=== PATIENT | female | born 1950 | race Caucasian/White ===

== ENCOUNTER → 2017-03-10 | Outpatient (CLI) | payer OTHER | LOC: FIMAGING 13:22 | DX: Z12.31 Encounter for screening mammogram for malignant neoplasm of breast (principal) | CPT/HCPCS: G0202 ==

== ENCOUNTER 2017-12-05 17:05 | Observation (INO) | payer OTHER ==
--- NOTE | 2017-12-05 17:19 | CPEKG ---
Heart Rate: 62 RR Interval: 968 P-R Interval: 168 QRSD Interval: 100 QT Interval: 436 QTC Interval: 443 P Alto: 43 QRS Alto: 49 T Wave Alto: 119 EKG Severity - ABNORMAL ECG - EKG Impression: SINUS RHYTHM EKG Impression: NONSPECIFIC T ABNORMALITIES, LATERAL LEADS Electronically Signed By: Jase Okeefe 08-Dec-2017 06:10:55
[2017-12-05] MEDS ORDERED: ASPIRIN 81 MG CHEWABLE TAB PO ONE (17:20)
[2017-12-05 17:33] LABS: PLATELET COUNT 261 10^3/uL (150-400)
--- NOTE | 2017-12-05 18:09 | EDPHY ---
H & P Stated Complaint: chest pain and dyspnea earlier today Time Seen by Provider: 12/05/17 17:20 HPI/ROS: CHIEF COMPLAINT: CHEST PAIN HISTORY BY PATIENT HISTORY OF PRESENT ILLNESS: 67-YEAR-OLD WOMAN WITH A HISTORY OF HYPERTENSION, diabetes and high cholesterol presents complaining of an episode of pressure- like substernal chest pain which began while she was walking quickly trying to get to an event. Patient states that she began walking quickly and then developed some shortness of breath and then the pressure-like chest pain. She had to sit down on a bench and after 10-15 minutes the symptoms subsided. Patient has had a history of shortness of breath with exertion but never chest pain. She has some chronic mild leg swelling. She denies any leg pain. She takes a baby aspirin a day but her last 1 was last night. Her blood pressure has generally been well controlled and she takes her lisinopril regularly. REVIEW OF SYSTEMS: IN HPI, AND ALL OTHER SYSTEMS REVIEWED AND ARE NEGATIVE Source: Patient - Personal History Current Tetanus Diphtheria and Acellular Pertussis (TDAP): Yes Tetanus Vaccine Date: 2015 - Medical/Surgical History Hx Asthma: No Hx Chronic Respiratory Disease: No Hx Diabetes: Yes Hx Cardiac Disease: No Hx Renal Disease: Yes Hx Cirrhosis: No Hx Alcoholism: No Hx HIV/AIDS: No Hx Splenectomy or Spleen Trauma: No Other PMH: diabetes,renal insufficiency,HTN,gout,depression - Social History Smoking Status: Former smoker - Physical Exam Exam: General Appearance: Alert, morbidly obese, comfortable appearing, speaking full sentences. Head: normocephalic, atraumatic Eyes: Pupils equal and round, reactive to light, no pallor or injection. Mouth: Mucous membranes moist. Respiratory: Normal, effort, lungs are clear to auscultation. No wheezes, rales or rhonchi. Cardiovascular: Regular rate and rhythm. S1, S2, no murmurs, gallops or rubs appreciated Gastrointestinal: Abdomen is soft and nontender, no masses, bowel sounds normal. Back: No CVA tenderness, no bony tenderness Neurological: Awake, alert and oriented x 3, no pronator drift, normal gait, no pronator drift Skin: Warm and dry, no rashes. Musculoskeletal: No deformities or tenderness. Extremities: full range of motion, tree spitting edema bilaterally, DP2+ bilat Psychiatric: Patient has normal affect, there is no agitation. Constitutional: Initial Vital Signs Heart Rate 60 12/05/17 17:30 Respiratory Rate 20 12/05/17 17:30 Blood Pressure 185/75 H 12/05/17 17:30 O2 Sat (%) 95 12/05/17 17:30 O2 Delivery Mode Room Air Allergies/Adverse Reactions: ciprofloxacin [From Cipro] Allergy (Verified 12/05/17 17:30) Home Medications: Medication Instructions Recorded Aspirin 81mg (*) 12/05/17 Iron 12/05/17 Januvia 100 MG (*) 12/05/17 Lipitor 12/05/17 Lisinopril 12/05/17 Prozac 20 MG (*) 12/05/17 Uloric 12/05/17 Medical Decision Making - Diagnostics EKG Interpretation: Normal sinus rhythm at a rate of 62 with normal axis, normal intervals and flat T-waves in the lateral leads the concerning for ischemia. Impression: Abnormal EKG ED Course/Re-evaluation: 67-year-old woman with multiple cardiac risk factors presents after an episode of exertional chest pain. On arrival patient's blood pressure was extremely elevated however this did improve without intervention. Chest x-ray shows slightly enlarged heart. ECG shows nonspecific changes but no evidence of STEMI. Patient was asymptomatic in the emergency department. She was given an aspirin. First troponin was negative. Given the patient's multiple risk factors and concerning history for cardiac chest pain she will be transferred to [facility] for further evaluation and treatment. I discussed the case with Dr. Bhatt, hospitalist avionics electrical engineer who accepts the patient in transfer. I discussed this with the patient and her family who understand and are agreeable to this plan. - Data Points Laboratory Results: Laboratory Results 12/05/17 17:24 12/05/17 17:24 12/05/17 12/05/17 17:24 17:24 WBC 9.60 10^3/uL H 10^3/uL (3.80-9.50) RBC 4.81 10^6/uL 10^6/uL (4.18-5.33) Hgb 13.3 g/dL g/dL (12.6-16.3) Hct 40.8 % % (38.0-47.0) MCV 84.8 fL fL (81.5-99.8) MCH 27.7 pg L pg (27.9-34.1) MCHC 32.6 g/dL g/dL (32.4-36.7) RDW 15.3 % H % (11.5-15.2) Plt Count 261 10^3/uL 10^3/uL (150-400) MPV 10.8 fL fL (8.7-11.7) Neut % (Auto) 59.4 % % (39.3-74.2) Lymph % (Auto) 27.3 % % (15.0-45.0) Dixie % (Auto) 8.9 % % (4.5-13.0) Eos % (Auto) 3.4 % % (0.6-7.6) Baso % (Auto) 0.4 % % (0.3-1.7) Nucleat RBC Rel Count 0.0 % % (0.0-0.2) Absolute Neuts (auto) 5.70 10^3/uL 10^3/uL (1.70-6.50) Absolute Lymphs (auto) 2.62 10^3/uL 10^3/uL (1.00-3.00) Absolute Monos (auto) 0.85 10^3/uL H 10^3/uL (0.30-0.80) Absolute Eos (auto) 0.33 10^3/uL 10^3/uL (0.03-0.40) Absolute Basos (auto) 0.04 10^3/uL 10^3/uL (0.02-0.10) Absolute Nucleated RBC 0.00 10^3/uL 10^3/uL (0-0.01) Immature Gran % 0.6 % % (0.0-1.1) Immature Gran # 0.06 10^3/uL 10^3/uL (0.00-0.10) Sodium 143 mEq/L mEq/L (135-145) Potassium 3.9 mEq/L mEq/L (3.5-5.2) Chloride 101 mEq/L mEq/L (97-110) Carbon Dioxide 29 mEq/l mEq/l (22-31) Anion Gap 13 mEq/L mEq/L (8-16) BUN 19 mg/dL mg/dL (7-23) Creatinine 1.2 mg/dL H mg/dL (0.6-1.0) Estimated GFR 45 Glucose 89 mg/dL mg/dL (70-100) Calcium 9.2 mg/dL mg/dL (8.5-10.4) Troponin I 0.016 ng/mL ng/mL (0.000-0.034) Medications Given: Discontinued Medications Aspirin (Aspirin) 324 mg PO EDNOW ONE Stop: 12/05/17 17:21 Last Admin: 12/05/17 17:26 Dose: 324 mg Departure - Departure Disposition: [facility] Inpatient Acute Clinical Impression: Chest pain Qualifiers: Chest pain type: unspecified Qualified Code(s): R07.9 - Chest pain, unspecified Hypertension Qualifiers: Hypertension type: unspecified Qualified Code(s): I10 - Essential (primary) hypertension Condition: Fair Referrals: Mykel Carlos MD [Primary Care Provider] - As per Instructions
--- NOTE | 2017-12-05 22:19 | PDGENHP ---
History and Physical History and Physical: CC: Chest pain, exertional HISTORY: The patient was transferred here from in the ER after she was evaluated for chest pain. The patient has no cardiac history no thromboembolic disease history. Today she went to the [facility] and was walking more vigorously than she typically would to trying get to an event on time. After walking for approximately 15 min across [place] she started having a pressure in the substernal chest. She walked another minute or 2 to get to a bench to sit down and rest. Upon sitting and resting the symptom resolved over period of 5-10 minutes and has not recurred since. She says she has some chronic exertional dyspnea but had more than her usual dyspnea during this episode. There is no diaphoresis or nausea per se. She did not feel palpitations. There is no sharp or pleuritic pain and she has no pain or swelling in her legs that she has noticed. Her father had an CT in his 50s, she is diabetic hyperlipidemic hypertensive and obese. She smoked for a few decades but quit 25 years ago. She has never been tested for sleep apnea. As mentioned she is a former smoker and has chronic exertional dyspnea that until today has been stable, but she has never been diagnosed with or assessed for any specific lung illnesses such as emphysema. She had an echocardiogram many years ago but does know the results so it is unknown if there was any pulmonary hypertension at that time. In terms of her hypertension she says she takes lisinopril for that and it is usually in "good" range. ROS: A comprehensive 10 system review revealed no other significant findings PAST MEDICAL HISTORY: Obesity Hypertension Hyperlipidemia Diabetes type 2 Chronic kidney disease with stable creatinine 1.2 Gout Depression FAMILY MEDICAL HISTORY: Coronary artery disease with myocardial infarction premature age 50s SOCIAL HISTORY: and lives with her who is here at the bedside and very supportive Quit smoking 25 years ago No significant alcohol Chronically slowed by her obesity and exertional dyspnea MEDICATIONS: The patients list has been reconciled by our clinical pharmacist in the EMR. I have reviewed the list and ordered appropriate medicines. PHYSICAL EXAMINATION: Vital Signs: Fairly hypertensive tonight otherwise stable vitals Concrete Boom Pump Operator: Sinus rhythm Examination: General: alert, oriented, good mentation, relaxed, very obese Skin: warm, dry, good color, no rash HEENT: normal Neck: no mass or jvd though obesity may hinder assessment for JVD Resps: relaxed Lungs: Diminished but otherwise clear breath sounds Heart: regular, no murmur Abdomen: soft, nondistended, nontender, +BS, no mass Upper Extremities: normal Lower Extremities: trace bilateral ankle edema, warm No Bleeding or bruising Neurologic: normal speech/language, normal piler, no focal weakness IV site: looks normal LABORATORY DATA: CBC unremarkable Creatinine stable at her baseline of 1.2 Troponin negative RADIOLOGY STUDIES: I reviewed chest x-ray images from today, still mildly enlarged cardiac silhouette otherwise unremarkable 12 LEAD EKG: I reviewed 12 lead EKG tracing from today in the ER, sinus rhythm with no evidence of ischemia or other concerning abnormality ASSESSMENT: -1st ever episode of exertional angina, resolved after rest for 5-10 minutes -this symptom is described as classic angina by the patient and she has multiple risk factors. -the likelihood of coronary disease causing this is quite high, however it is hard to tell whether this represents rapid onset or progression of disease as opposed to chronic stable disease that she only unmasked when she exerted herself more vigorously than usual today; this last point would be of importance as the recommended treatments could be quite different ever or progressive versus stable disease -uncontrolled hypertension -other risk factors include diabetes hyperlipidemia and obesity and would worry about sleep apnea -chronic exertional dyspnea in a obese former smoker with high suspicion for emphysema, obesity related hypoventilation syndrome, pulmonary hypertension, And possibly sleep apnea as well PLANS: -observe on the metal flooring installer unit overnight -complete rule out CT protocol -Dr. Valdes is aware and Cardiology will see her. She will need either stress testing or angiography and I think the points above would influence how weak use that as well as her clinical stability overnight -an echocardiogram will be useful to look for pulmonary hypertension and any possible valvular abnormalities or wall motion abnormalities as well -she should be prescribed inhaled bronchodilators as she goes home, though I did caution her that if this makes it easier for her to walk she might have more exertional angina unless we do revascularization of some type -she should have in the outpatient setting assessment for emphysema and for possible sleep apnea particularly if she has pulmonary hypertension I have reviewed the patient's case in detail with Dr. Heredia of ER I have reviewed the patient's past medical records as part of this assessment, including outpatient clinic records
[2017-12-05] MEDS ORDERED: ZOLPIDEM TARTRATE 5 MG TAB PO PRN (22:25)
[2017-12-05] MEDS ORDERED: ACETAMINOPHEN 325 MG TAB PO PRN (22:25)
[2017-12-05] MEDS ORDERED: ONDANSETRON 4 MG/2 ML VIAL IVP PRN (22:25)
[2017-12-05] MEDS ORDERED: ONDANSETRON DISINTEGRATING 4 MG TAB PO PRN (22:25)
[2017-12-05] MEDS ORDERED: ALBUTEROL 3 ML DEYVIAL IH PRN (22:25)
[2017-12-05] MEDS ORDERED: NS 1,000 ML IV SCH (22:30)
[2017-12-05] MEDS ORDERED: hydrALAZINE 25 MG TAB PO PRN (22:31)
[2017-12-05] MEDS: ASPIRIN 81 MG CHEWABLE TAB PO SCH (23:14)
[2017-12-05] MEDS: FERROUS SULFATE 140 MG TAB.ER PO SCH (23:41)
[2017-12-05] MEDS: ATORVASTATIN CALCIUM 40 MG TAB PO SCH (23:41)
--- NOTE | 2017-12-06 06:26 | CPEKG ---
Heart Rate: 58 RR Interval: 1034 P-R Interval: 168 QRSD Interval: 102 QT Interval: 464 QTC Interval: 456 P [place]: 54 QRS [place]: 49 T Wave [place]: 69 EKG Severity - BORDERLINE ECG - EKG Impression: SINUS RHYTHM EKG Impression: PROBABLE LEFT ATRIAL ABNORMALITY EKG Impression: BORDERLINE T ABNORMALITIES, ANT-LAT LEADS Electronically Signed By: Ramón Chacon 07-Dec-2017 10:32:54
[2017-12-06] MEDS ORDERED: LISINOPRIL 20 MG TAB PO SCH (09:00)
[2017-12-06] MEDS ORDERED: amLODIPine BESYLATE 5 MG TAB PO SCH (09:00)
[2017-12-06] MEDS ORDERED: Febuxostat [Uloric] 80 MG PO SCH (09:00)
[2017-12-06] MEDS ORDERED: FLUoxetine 20 MG CAP PO SCH (09:00)
[2017-12-06] MEDS ORDERED: CHOLECALCIFEROL VIT D3 1,000 UNITS TAB PO SCH (09:00)
--- NOTE | 2017-12-06 10:23 | ASMTCMCOM ---
CM Note CM Note Notes: 12/06/2017 Case Management Note Met w/pt and . GRIDER signed. is Yuli [phone] Son Norris lives in [place] Daughter Ana Laura lives in [place]. Pt is a retired finance professional. She still drives and is indepedent in ADL's. Case Management did not identify any d/c needs. There are No PT or OT evals ordered at this time. Case Management d/c poc: anticipating independent with follow up as directed. Case Management available if needs change. Date Signed: 12/06/2017 10:22 AM Electronically Signed By:Brigette Alfaro RN
--- NOTE | 2017-12-06 13:16 | ECHO ---
[email or web address] [address] [address] Main: [phone] Fax: Transthoracic Echocardiogram Name: ROOSEVELT HEARN MR#: [id number] Study Date: 12/06/2017 Study Time: 11:59 AM Date of : 1950 Age: 67 year(s) Height: 152.4 cm (60 in.) Weight: 135.63 kg (299 lb.) BSA: 2.21 m2 Gender: Female Examination: Echo Indication: Chest Pain, Cardiac: dyspnea Image Quality: Contrast: Requested by: Ayan Bhatt BP: 162 mmHg/80 mmHg Heart Rate: Rhythm: Normal sinus rhythm Indication: Chest Pain, Cardiac: dyspnea Procedure Staff Digital Sales Executive: Blas Villalba Reading Physician: Santiago Montelongo Requesting Provider: Conclusions: Normal size left ventricle. Mild concentric LV hypertrophy. Normal global systolic LV function. EF is 66 %. No regional wall motion abnormality. Trivial tricuspid valve regurgitation. Measurements: Chambers Valvular Assessment AV/MV Valvular Assessment TV/PV Normal Normal Normal Name Value Range Name Value Range Name Value Range Ao Estella (MM): 2.7 cm (2.2 cm-3.7 AV Vmax: 1.83 m/s (1 m/s-1.7 TR Vmax: 2.73 mm/s ( - ) cm) m/s) TR PGmax: 30 mmHg ( - ) IVSd (2D): 1.0 cm (0.6 cm-1.1 AV maxP mmHg ( - ) syst. PAP: 35 mmHg ( - ) cm) LVOT Vmax: 1.11 m/s (0.7 m/s-1.1 PV Vmax: 1.13 m/s (0.6 m/s-0.9 LVDd (2D): 5.2 cm (3.9 cm-5.3 m/s) m/s) cm) MV E Vmax: 0.62 m/s ( - ) PV PGmax: 5 mmHg ( - ) LVDs (2D): 3.3 cm (2.1 cm-4 MV A Vmax: 0.94 m/s ( - ) cm) MV E/A: 0.66 ( - ) LVPWd (2D): 1.2 cm ( - ) LVEF (2D): 66 (>=54 %) Continued Measurements: Chambers Valvular Assessment AV/MV Valvular Assessment TV/PV Name Value Name Value Name Value LADs Lon.7 cm MV E' Septal: 0.05 m/s CVP (est.): 5 mmHg LA Area: 21.9 cm2 MV E/E' Septal: 11.60 LA Volume: 61 ml MV E/E' Lateral: 8.40 LA Volume Index: 27.6 ml/m2 Patient: ROOSEVELT HEARN Study Date: 12/06/2017 Page 1 of 2 11:59 AM Findings: Left Ventricle: Normal size left ventricle. Mild concentric LV hypertrophy. Normal global systolic LV function. EF is 66 %. No regional wall motion abnormality. Diastolic dysfunction is present. . Right Ventricle: Normal size right ventricle. Left Atrium: The left atrium is normal in size. Right Atrium: The right atrium is normal in size. Mitral Valve: The mitral valve is normal in appearance and function. Aortic Valve: The aortic valve is normal in appearance and function. The aortic valve is tri-leaflet. Tricuspid Valve: The tricuspid valve appears normal. Trivial tricuspid valve regurgitation. Pulmonic Valve: The pulmonic valve is normal in appearance and function. Aorta: The aorta is normal. Pericardium: No pericardial effusion. (No Signature Object) Patient: ROOSEVELT HEARN Study Date: 12/06/2017 Page 2 of 2 11:59 AM [id number]
--- NOTE | 2017-12-06 16:44 | PDCARCONS ---
Cardiology Consult Reason for Consult: Chest pain, dyspnea. Chief Complaint: Chest pain, dyspnea. Requesting Physician: Dr. Ayan Bhatt. History of Present Illness: The patient is a 67-year-old female. She has no known coronary artery disease. Her cardiac risk factor profile is, however, extensive and includes her age, obesity, sedentary lifestyle, 25 year history of diabetes, hypertension and hyperlipidemia. She notes that while she has no known cardiovascular disease, she was evaluated for chest discomfort many years ago and at that time had a normal stress test. At her baseline she is nearly completely sedentary. She has had symptoms of chronic dyspnea dating back many years. She gets short of breath with daily activities and short walks. Her and her were at the [facility] yesterday. They were trying to attend a Isac Mancuso presentation. They were in a hurry to try to locate the venue. As result there were walking very briskly which included going up a hill. She notes that she developed symptoms of retrosternal chest heaviness. The symptoms were isolated to region immediately behind her chest. This was associated with dyspnea and required that she sit and rest. After about 5 minutes the symptoms resolved and she decided to return to her car and go home. During the walk back to the car she had no concerning symptoms. When she got home she called her PCP who subsequently advised her to come to the emergency department here. On arrival here she was hypertensive and has been hypertensive during her entire hospitalization. She has not had any recurrent symptoms. She notes no fever, chills or sweats and denies cough. She has no history of DVT or PE. Her arrival ECG demonstrated sinus rhythm with minor nonspecific ST and T changes. She was admitted to the hospital. Sequential cardiac enzymes were negative. She had an echocardiogram done. That was personally reviewed by myself. This study is essentially normal. There is, however, a slight abnormal color flow jet in the left ventricular outflow tract and ascending aorta. This occurs in diastole and only seen on a single view. There is no dissection flap. History Information - Allergies/Home Medication List Allergies/Adverse Reactions: ciprofloxacin [From Cipro] Allergy (Verified 12/05/17 17:30) Home Medications: Aspirin [Aspirin 81mg (*)] 81 mg PO HS 12/05/17 [Last Taken 12/04/17] Atorvastatin Calcium [Lipitor 40 mg (*)] 40 mg PO HS 12/05/17 [Last Taken ] Cholecalciferol Vit D3 [Vitamin D3 (*)] 1,000 units PO DAILY 12/05/17 [Last Taken 12/05/17] FLUoxetine [Prozac 20 MG (*)] 20 mg PO DAILY 12/05/17 [Last Taken 12/05/17] Febuxostat [Uloric] 80 mg PO DAILY 12/05/17 [Last Taken 12/05/17] Ferrous Sulfate [Slow Fe 140 MG (*)] 140 mg PO BID 12/05/17 [Last Taken 08:00] Lisinopril [Zestril 20 mg (*)] 20 mg PO DAILY 12/05/17 [Last Taken 12/05/17] Naphazoline HCl/Phenir Mal [Visine-A] 1 drops OP DAILY PRN 12/05/17 [Last Taken Unknown] sitaGLIPtin PHOSPHATE [Januvia 25 MG (*)] 25 mg PO DAILY 12/05/17 [Last Taken ] I have personally reviewed and updated: family history, medical history, social history, surgical history Past Medical History: Morbid obesity, hypertension, hyperlipidemia, type 2 diabetes mellitus for 20- 25 years, chronic renal insufficiency with a creatinine 1.2, gout, depression, osteoarthritis of the knees - Surgical History Additional surgical history: Left knee arthroscopic surgery, history of breast cyst removal. - Family History Additional family history: Her father suffered a myocardial infarction at the age of 50. He at the age of 84. - Social History Smoking Status: Former smoker (She quit 25 years ago.) Alcohol Use: Rarely Drug Use: None Additional social history: She is and accompanied by her . Her son is at the bedside. Physical Exam Physical Exam: Temp Pulse Resp BP Pulse Ox 36.4 C 57 L 18 166/94 H 94 12/06/17 15:29 12/06/17 15:29 12/06/17 15:29 12/06/17 15:30 12/06/17 15:29 Constitutional: no apparent distress Ears, Nose, Mouth, Throat: moist mucous membranes Cardiovascular: regular rate and rhythym, systolic murmur (1/6 systolic ejection murmur left sternal border), No irregularly irregular, No diastolic murmur, No JVD Peripheral Pulses: 2+: carotid (R), carotid (L) Respiratory: no respiratory distress, no rales or rhonchi, clear to auscultation Gastrointestinal: normoactive bowel sounds, soft, non-tender abdomen, no palpable masses Skin: warm, normal color, no rashes or abrasions Neurologic: AAOx3 Psychiatric: interacting appropriately Lab and Imaging 12/05/17 17:24 12/06/17 04:24 WBC 9.60 10^3/uL (3.80-9.50) H 12/05/17 17:24 RBC 4.81 10^6/uL (4.18-5.33) 12/05/17 17:24 Hgb 13.3 g/dL (12.6-16.3) 12/05/17 17:24 Hct 40.8 % (38.0-47.0) 12/05/17 17:24 MCV 84.8 fL (81.5-99.8) 12/05/17 17:24 MCH 27.7 pg (27.9-34.1) L 12/05/17 17:24 MCHC 32.6 g/dL (32.4-36.7) 12/05/17 17:24 RDW 15.3 % (11.5-15.2) H 12/05/17 17:24 Plt Count 261 10^3/uL (150-400) 12/05/17 17:24 MPV 10.8 fL (8.7-11.7) 12/05/17 17:24 Neut % (Auto) 59.4 % (39.3-74.2) 12/05/17 17:24 Lymph % (Auto) 27.3 % (15.0-45.0) 12/05/17 17:24 Tate % (Auto) 8.9 % (4.5-13.0) 12/05/17 17:24 Eos % (Auto) 3.4 % (0.6-7.6) 12/05/17 17:24 Baso % (Auto) 0.4 % (0.3-1.7) 12/05/17 17:24 Nucleat RBC Rel Count 0.0 % (0.0-0.2) 12/05/17 17: Absolute Neuts (auto) 5.70 10^3/uL (1.70-6.50) 12/05/17 17:24 Absolute Lymphs (auto) 2.62 10^3/uL (1.00-3.00) 12/05/17 17:24 Absolute Monos (auto) 0.85 10^3/uL (0.30-0.80) H 12/05/17 17:24 Absolute Eos (auto) 0.33 10^3/uL (0.03-0.40) 12/05/17 17:24 Absolute Basos (auto) 0.04 10^3/uL (0.02-0.10) 12/05/17 17:24 Absolute Nucleated RBC 0.00 10^3/uL (0-0.01) 12/05/17 17:24 Immature Gran % 0.6 % (0.0-1.1) 12/05/17 17:24 Immature Gran # 0.06 10^3/uL (0.00-0.10) 12/05/17 17:24 Sodium 144 mEq/L (135-145) 12/06/17 04:24 Potassium 4.0 mEq/L (3.5-5.2) 12/06/17 04:24 Chloride 106 mEq/L (97-110) 12/06/17 04:24 Carbon Dioxide 29 mEq/l (22-31) 12/06/17 04:24 Anion Gap 9 mEq/L (8-16) 12/06/17 04:24 BUN 19 mg/dL (7-23) 12/06/17 04:24 Creatinine 1.2 mg/dL (0.6-1.0) H 12/06/17 04:24 Estimated GFR 45 12/06/17 04:24 Glucose 85 mg/dL (70-100) 12/06/17 04:24 Calcium 9.1 mg/dL (8.5-10.4) 12/06/17 04:24 Troponin I 0.018 ng/mL (0.000-0.034) 12/06/17 04:24 Visualized and Interpreted Chest x-ray results: Yes Chest X-ray Interpretation: no infiltrate Visualized and Interpreted EKG results: Yes EKG additional interpertation: Normal sinus rhythm. Nonspecific ST and T changes. No evolutionary changes. Telemetry: Normal sinus rhythm with occasional PVCs. Echocardiogram: Personally reviewed and discussed above. There is a separately dictated report in the chart. A/P Assessment: This is a 67-year-old female who has no known cardiovascular disease however has an extensive and coronary risk equivalent risk factor profile. At her baseline she is morbidly obese and really almost completely sedentary. She presents with a single episode of exertional chest discomfort when she was in a hurry and rushing to walk up a hill. Her symptoms were short-lived and resolved with rest. She has chronic baseline symptoms of exertional dyspnea dating back many years. Her workup thus far indicates only minor nonspecific ST -T changes on her ECG. Sequential cardiac enzymes were negative. Her chest x- ray is unremarkable. Her echocardiogram is essentially normal however, there is what appears to be an artifactual low jet in the left ventricular outflow tract. This is noted at end diastole. There is no dissection flap. Overall I think it is safe for her to go home with an outpatient expedited stress myocardial perfusion imaging study. Because of this echocardiographic abnormality which most likely represents an artifact I would like her to have a CTA chest to rule out dissection. I do not think her current clinical presentation fits that of PE. Provided that the CT chest is normal I think that she can be discharged. She will follow up with me following her stress test. Regarding her hypertension, she has been hypertensive since admission. She was started on amlodipine. It should be continued. We can further optimize her antihypertensive regimen as an outpatient. She and I discussed the possible utility of adding a diuretic. Apparently, this has been suggested in the past however there were concerns regarding her chronic renal insufficiency and propensity toward gout.
[2017-12-06] MEDS ORDERED: IOPAMIDOL (ISOVUE 370) 100 ML BTL IV ONE (17:06)
[2017-12-06] MEDS: FERROUS SULFATE 140 MG TAB.ER PO SCH ×2 (17:50→19:48)
--- NOTE | 2017-12-06 19:46 | GDS ---
[f rep st] DISCHARGE SUMMARY HOSPITAL CONSULTANTS: Dr. Valdes, Cardiology. DISCHARGE DIAGNOSIS: Chest pain. HISTORY OF PRESENT ILLNESS: The patient is a pleasant 67-year-old female with a past medical history of hypertension and chronic kidney disease stage 2, with an estimated baseline at 1.2, who was walki ng on the [facility] a little more vigorously than she normally would, when she st arted having substernal chest pressure. She then sat down, and symptoms resolved after 5-10 minutes. Due to her symptoms, she presented to the [facility] Emergency Room, and she was ad mitted for observation overnight. Her troponins were negative, and her symptoms did not recur during the hospitalization. Cardiology was consulted for additional recommendations as well. An echocardi ogram was performed, and did not show any wall motion abnormalities. Normal left ventricular functio n was noted with an ejection fraction estimated at 66%. A CT of her chest is recommended prior to di scharge to assess for possibility of a dissection. This has been ordered, and this discharge will be pending the final results of that study. HOSPITAL COURSE: 1. Angina, possible. Echocardiogram did not reveal any significant abnormalities, and her troponins were negative. A CT of her chest to look for the dissection is being ordered prior to discharge. O brionna, outpatient cardiology followup is planned. It is recommended that she continue with a emil y aspirin. 2. Hypertension, uncontrolled. It is recommended to add amlodipine 5 mg daily to her current regime n. 3. Chronic kidney disease stage 2. Her creatinine baseline is 1.2. She is at that at this current time. 4. Diabetes mellitus type 2. She is currently on sitagliptin. No changes were made during this hos pitalization. 5. Hyperlipidemia. The patient is on statin therapy. 6. Gout. The patient is on Uloric. 7. Depression. The patient is on Prozac. 8. Deep vein thrombosis prophylaxis. The patient was on compression devices during this hospitaliza tion. DISPOSITION: She appears stable for discharge home with family today. DISCHARGE EXAM: VITAL SIGNS: Temperature 36.4, blood pressure 166/94, heart rate 57, respirations 1 8, satting 94% on room air. GENERAL: The patient is resting comfortably in bed, in no acute distres s. HEART: Regular. No murmurs. LUNGS: Clear to auscultation. Normal respiratory effort. ABDOME N: Soft, nontender, nondistended. : No Johnson catheter in place. EXTREMITIES: No significant pi tting edema appreciated. LABORATORY DATA: Notable Studies: Troponin was 0.012 to 0.016 to 0.018. Sodium 144, potassium 4.0, chloride 106, bicarb 29, BUN is 19, creatinine 1.2, glucose of 85. White blood cell count is 9, hem oglobin 13, platelets are 261. Echocardiogram normal left ventricle size, mild concentric left ventricular hypertrophy. Normal glob al systolic left ventricular function with an estimated ejection fraction of 66%. No wall motion abn ormalities. Chest x-ray, mild cardiomegaly, possibly mild early congestive heart failure. DISCHARGE MEDICATIONS: 1. Aspirin 81 mg daily. 2. Amlodipine 5 mg daily. 3. Uloric 80 mg daily. 4. Prozac 20 mg daily. 5. Vitamin D 1,000 units daily. 6. Lisinopril 20 mg daily. 7. Atorvastatin 40 mg nightly. 8. Sitagliptin 25 mg daily. 9. Ferrous sulfate 140 mg twice a day. DISCHARGE INSTRUCTIONS: I have recommended a followup visit with Dr. Valdes to discuss further brian martina, and also with Dr. Carlos, her primary care provider, as well as. She states she has an appoint ment tentatively planned for next week. 35 minutes of time dedicated to discharge efforts. /[id number]/MODL
[2017-12-06] MEDS: ATORVASTATIN CALCIUM 40 MG TAB PO SCH (19:48)
[2017-12-06] MEDS: ASPIRIN 81 MG CHEWABLE TAB PO SCH (19:48)
[2017-12-06 19:59] VITALS: BP 172/87; PULSE 59; RESP 16; TEMP 98.1; O2SAT 91
== END 2017-12-06 20:25 | disposition home or self-care (01) ==
LOC: CED 17:05 → CEDHOLD 18:11 → F2W 20:39
PROVIDERS: ADMIT Internal Medicine; ATTEND Internal Medicine
DX: R07.89 Other chest pain (principal); I12.9 Hypertensive chronic kidney disease with stage 1 through stage 4 chronic kidney disease, or unspecified chronic kidney disease; E78.5 Hyperlipidemia, unspecified; E11.9 Type 2 diabetes mellitus without complications; N18.9 Chronic kidney disease, unspecified; R60.9 Edema, unspecified; E66.01 Morbid (severe) obesity due to excess calories; M17.0 Bilateral primary osteoarthritis of knee; Z68.43 Body mass index [BMI] 50.0-59.9, adult; F32.9 Major depressive disorder, single episode, unspecified; Z82.49 Family history of ischemic heart disease and other diseases of the circulatory system; Z87.891 Personal history of nicotine dependence
CPT/HCPCS: 71046; 71275; 93005; 93306; G0378; Q9967; 80048-PO; 84484-PO; 85025-PO

== ENCOUNTER → 2017-12-11 | Outpatient (CLI) | payer OTHER ==
[~2017-12-11] MED LIST: REGADENOSON 0.4 MG/5 ML SYR IVP ONE
--- NOTE | 2017-12-11 14:38 | CPR ---
[f rep st] NONINVASIVE CARDIAC PROCEDURE REPORT DATE OF PROCEDURE: 12/11/2017 PROCEDURE: Lexiscan nuclear stress test. REASON FOR TEST: Chest pain. ORDERING PHYSICIAN: Hospitalist. DESCRIPTION: Resting EKG shows a sinus bradycardia with a rate of 51. Right axis deviation. No arr hythmias or ischemic changes. Resting blood pressure 124/82. Oxygen saturation 95%. Stress portion: Lexiscan was injected rapidly, followed by saline flush. Cardiolite was then inject ed, followed by saline flush. She did note a flushing and tightness in her chest. Peak blood pressu re 152/98. Peak heart rate 80. Oxygen saturation 97%. During test, occasional PAC and PVCs were no elba. There were no other ischemic changes. Recovery: She did spontaneously recover. EKG remained stable. Final EKG, no arrhythmias. No ische efraín changes. Resting blood pressure on recovery 132/88. Heart rate 70. Oxygen saturation 95%. Sig ns and symptoms dissipated with caffeine. At this time, she currently is stable for nuclear imaging. /[id number]/MODL
== END ==
LOC: FIMAGING 12:35
PROVIDERS: ATTEND Internal Medicine Cardiovascular Disease
DX: R07.9 Chest pain, unspecified (principal)
CPT/HCPCS: 78452; 93017; A9500; J2785

== ENCOUNTER → 2018-03-06 | Outpatient (CLI) | payer OTHER | LOC: CIMAGING 11:51 | PROVIDERS: ATTEND Podiatrist | DX: M19.071 Primary osteoarthritis, right ankle and foot (principal); M19.072 Primary osteoarthritis, left ankle and foot; M21.611 Bunion of right foot; M21.612 Bunion of left foot | CPT/HCPCS: 73630-PO ==

== ENCOUNTER → 2018-03-20 | Outpatient (CLI) | payer OTHER | LOC: FIMAGING 11:52 | PROVIDERS: ATTEND Internal Medicine | DX: Z12.31 Encounter for screening mammogram for malignant neoplasm of breast (principal) ==

== ENCOUNTER → 2018-07-06 | Outpatient (CLI) | payer OTHER | LOC: FIMAGING 14:06 | PROVIDERS: ATTEND Physician Assistant | DX: R91.1 Solitary pulmonary nodule (principal) ==

== ENCOUNTER → 2019-03-22 | Outpatient (CLI) | payer OTHER | LOC: FIMAGING 15:06 | PROVIDERS: ATTEND Internal Medicine | DX: Z12.31 Encounter for screening mammogram for malignant neoplasm of breast (principal) ==